=== PATIENT | male | born 2000 | race Caucasian/White ===

== ENCOUNTER 2021-01-03 | Emergency (ER) | payer BC ==
[2021-01-03] MEDS ORDERED: KEFLEX500 MG PO (09:12)
== END 2021-01-03 09:46 | disposition home or self-care (01) | DRG 605 ==
PROC: 0HQFXZZ Repair Right Hand Skin, External Approach (ICD-10-PCS; principal; 2021-01-03)
DX: S61.210A Laceration without foreign body of right index finger without damage to nail, initial encounter (principal); W45.8XXA Other foreign body or object entering through skin, initial encounter; Y93.89 Activity, other specified